=== PATIENT | female | born 1990 | race African-American/Black ===

== ENCOUNTER 2016-08-24 16:02 | Emergency (ER) | payer MEDICAID ==
[~2016-08-24] VITALS: Ht 177.8 cm; Wt 81.6 kg
[~2016-08-24 16:02] MED LIST: AMOXICILLIN500 MG ORAL; BENADRYL25 MG ORAL; IBUPROFEN600 MG ORAL; NKM; NORCO 5-325 TA1 EACH ORAL; PERMETHRIN60 GM TOPIC
[2016-08-24 16:13] VITALS: BP 106/70
--- NOTE | 2016-08-24 16:44 | Emergency Room Report ---
History of Present Illness General Chief Complaint: Pain Source: Patient Present Illness HPI 26 YO Female presents to the ED c/o right thumb pain radiating up into the wrist x 6 days. s/p being hand cuffed. 9/10 pain throbbing in nature. pt states " feels as though her nerves is moving." denies fall or other trauma. Pt. states pain is exacerbated upon movement of the thumb patient denies paresthesia of the thumb. Denies bruising, redness, swelling. Denies nausea, vomiting, fevers, chills. Denies numbness tingling or loss of sensation or gross motor movements of the extremities, incontinence of bowel or bladder. Denies CP, Palpitations, LOC, AMS, dizziness, Changes in Vision, Sensation, paresthesias, or a sudden severe headache. Allergies: Coded Allergies: No Known Allergies (Unverified , 02/07/14) Patient History Past Medical History: see triage record Past Surgical History: none Pertinent Family History: none Last Menstrual Period: 07/21/16 Now: No Immunizations: UTD Reviewed Nursing Documentation: PMH: Agreed, PSxH: Agreed Nursing Documentation-PMH Past Medical History: No Stated History Review of Systems All Other Systems: negative except mentioned in HPI Physical Exam Vital Signs Date Time Temp Pulse Resp B/P Pulse Ox O2 Delivery O2 Flow Rate FiO2 08/24/16 16:05 98.4 100 14 106/70 99 Room Air Sp02 EP Interpretation: reviewed, normal General Appearance: no apparent distress, alert, GCS 15, non-toxic Head: normocephalic, atraumatic Eyes: bilateral eye PERRL, bilateral eye normal inspection ENT: hearing grossly normal, normal pharynx, no angioedema, normal voice Neck: full range of motion, supple/symm/no masses Respiratory: chest non-tender, lungs clear, normal breath sounds, speaking full sentences Cardiovascular #1: regular rate, rhythm, no edema Cardiovascular #2: 2+ carotid (R), 2+ carotid (L), 2+ radial (R), 2+ radial (L) , 2+ dorsalis pedis (R), 2+ dorsalis pedis (L) Gastrointestinal: normal bowel sounds, non tender, soft, no guarding, no rebound Rectal: deferred Genitourinary: normal inspection, no CVA tenderness Musculoskeletal: back normal, gait/station normal, normal range of motion, non- tender, no calf tenderness Neurologic: alert, oriented x3, responsive, motor strength/tone normal, sensory intact, speech normal Psychiatric: judgement/insight normal, memory normal, mood/affect normal, no suicidal/homicidal ideation Reflexes: 4+ bicep (R), 4+ bicep (L), 4+ tricep (R), 4+ tricep (L), 4+ knee (R) , 4+ knee (L) Skin: normal color, no rash, warm/dry, well hydrated Lymphatic: no adenopathy Medical Decision Making PA Attestation Dr. max is my supervising Physician whom patient management has been discussed with. Diagnostic Impression: Primary Impression: Right wrist sprain Qualified Codes: S63.501A - Unspecified sprain of right wrist, initial encounter ER Course Pt. presents to the ED c/o right thumb pain radiating up into the wrist x 6 days. s/p being hand cuffed. 9/10 pain throbbing in nature. pt states " feels as though her nerves is moving." Ddx considered but are not limited to Fracture, dislocation, contusion, Sprain/ Strain/Spasm, nerve impingement, contusion, tendinitis Vital signs: are WNL, pt. is afebrile H&PE are most consistent with tendinitis of the right thumb. ORDERS: - X-ray Right Hand 3 views - negative for fx, Dislocation, or significant soft tissue injury, per preliminary read in ED by Dr. Ricardo ED INTERVENTIONS: - Pt declines pain medication in the ED. - Wrist Splint applied to the right wrist and thumb by surgical instrument technician. Pt. remains neurovascularly intact. DISCHARGE: At this time pt. is stable for d/c to home. Will provide printed patient care instructions, and any necessary prescriptions. Care plan and follow up instructions have been discussed with the patient prior to discharge. Last Vital Signs Date Time Temp Pulse Resp B/P Pulse Ox O2 Delivery O2 Flow Rate FiO2 08/24/16 16:13 98.4 75 14 106/70 99 Room Air Disposition: HOME, SELF-CARE Condition: Stable Scripts Ibuprofen* (MOTRIN*) 600 Mg Tablet 600 MG ORAL THREE TIMES A DAY, #30 TAB 0 Refills Prov: Jess Clark 1/21/17 Referrals: [facility]ERR[facility] (PCP) Patient Instructions: Tendinitis Additional Instructions: Take medications as directed. Follow up with PCP in 3-5 days Return sooner to ED if new symptoms occur, or current symptoms become worse. Jess Clark Aug 24, 2016 16:44
[2016-08-24] MEDS ORDERED: IBUPROFEN600 MG ORAL (16:51)
[2016-08-24 17:01] VITALS: BP 110/72
--- NOTE | 2016-08-25 09:52 | Diagnostic Imaging Report ---
Indication: Right hand pain Technique: XRAY HAND MIN 3V RIGHT Comparison: None Findings: There is no acute fracture or dislocation. Bone mineralization is normal. Soft tissues are grossly unremarkable. Negative ulnar variance is noted. Impression: No acute osseous abnormality.
== END 2016-08-24 17:02 | disposition home or self-care (01) ==
LOC: EMR 16:17
DX: S63.591A Other specified sprain of right wrist, initial encounter (principal); X58.XXXA Exposure to other specified factors, initial encounter; Y92.9 Unspecified place or not applicable
CPT/HCPCS: 99283